=== PATIENT | female | born 1945 | race Caucasian/White ===

== ENCOUNTER 2020-09-10 16:24 | Emergency (ER) | payer MEDICARE, SELFPAY ==
[2020-09-10] VITALS (13 sets, daily range): BP systolic 119–164; BP diastolic 67–85; PULSE 64–86; RESP 16; TEMP 36.2; O2SAT 97–100
--- NOTE | ~2020-09-10 | CT_ITS ---
EXAMINATION: CT brain wo con EXAM DATE: 09/10/2020 19:25 INDICATION: Left-sided headache. History of aneurysm. TECHNIQUE: Spiral CT of the head was performed without contrast. Axial, coronal and sagittal images were reviewed. The dose-length product (DLP) for this examination was 605.33 mGy-cm. The exposure w as tailored according to patient size, and iterative reconstruction (ASIR) was used as additional dos e reduction technique. Comparison is made to prior examination from 01/11/2017. FINDINGS: There is been interval left-sided craniotomy, left parasellar aneurysm clip. There is large region of left frontotemporal encephalomalacia underlying this. There is no acute intraparenchymal h emorrhage. No evidence of intraparenchymal brain mass lesion. Mild cerebral atrophy. No evidence of acute infarction. There is no mass effect or midline shift. The ventricles are normal in size. The re are no extra-axial collections. There are no acute calvarial fractures. The orbits are unremarkab le. Soft tissue is unremarkable. The visualized sinuses and mastoid air cells are well aerated. IMPRESSION: 1. No acute intracranial findings. 2. Left parasellar aneurysm clip, left frontal craniotomy and underlying frontotemporal encephalomal acia. Reviewed, dictated and finalized at location A. IMPRESSION: 1. No acute intracranial findings. 2. Left parasellar aneurysm clip, left frontal craniotomy and underlying front otemporal encephalomalacia.
--- NOTE | 2020-09-10 19:01 | ED.HA ---
HPI - Headache General Chief Complaint: Headache Stated Complaint: headache Time Seen by Provider: 09/10/20 18:47 Source: patient and family Mode of arrival: ambulatory Limitations: other (previous CVA with history of expressive aphasia) History of Present Illness HPI Narrative: This is a 74-year-old female that presents the emergency department for worsening headache over the last couple of days. Reports history of aneurysm that she had clipped in the past at [facility]. Currently her neurologist is at [facility]. Per son has history of expressive aphasia since a stroke and does have history of headaches. She is currently seeing pain management for her headaches and they are doing Botox for her headaches. Reports visual change on the left, which also apparently is chronic. Denies fever, stiff neck, vomiting, numbness, or weakness. Related Data Home Medications Medication Instructions Recorded Confirmed acetaminophen 650 mg PO Q6H PRN 09/10/20 atorvastatin 20 mg PO HS 09/10/20 budesonide [Pulmicort Flexhaler] INHALATION 09/10/20 calcium polycarbophil [Fiber mg 09/10/20 (calcium polycarbophil)] diltiazem HCl 120 mg PO DAILY 09/10/20 gabapentin 300 mg PO DAILY 09/10/20 gabapentin 600 mg PO HS 09/10/20 loratadine 10 mg PO DAILY 09/10/20 metformin 500 mg PO BID 09/10/20 rfebyaaf-doy-UE-lycopen-lutein tablet PO 09/10/20 [CertaVite Senior] potassium chloride 40 meq PO DAILY 09/10/20 Allergies Allergy/AdvReac Type Severity Reaction Status Date / Time azithromycin Allergy Intermediate X Verified 09/10/20 18:45 latex Allergy Intermediate Rash Verified 09/10/20 18:45 hydrocodone Allergy Mild SOB Verified 09/10/20 18:45 levofloxacin Allergy Mild RASH Verified 09/10/20 18:45 aspirin Allergy Unknown Unknown Verified 09/10/20 18:45 codeine Allergy Unknown SOB Verified 09/10/20 18:45 Penicillins Allergy Unknown Unknown Verified 09/10/20 18:45 prednisone Allergy Unknown Unknown Verified 09/10/20 18:45 salicylates Allergy Unknown Verified 09/10/20 19:12 Review of Systems Review of Systems: Narrative: CONSTITUTIONAL: Denies fever EYES: Reports visual changes GASTROINTESTINAL: Denies vomiting SKIN: Denies rash NEUROLOGIC: Reports headache. Denies numbness, or weakness. All systems reviewed & are unremarkable except as noted in HPI and below PMFSH Past Medical History Medical History (Updated 09/10/20 @ 21:06 by Yadi Soin PA-C) History of diabetes mellitus History of hyperlipidemia History of hypertension Surgical History Surgical History (Updated 09/10/20 @ 19:07 by Yadi Soni PA-C) History of cerebral aneurysm repair Family History Family History (Updated 07/29/16 @ 09:42 by DOCTOR UNKNOWN) Father Family history of cardiovascular disease Social History Social History Alcohol intake: never Exam Narrative: Exam Narrative: GENERAL: Well-appearing, well-nourished, and in no acute distress. HEAD: Normocephalic, atraumatic. EYES: EOMI. Pupils slightly irregular, R>L, they are reactive to light ENT: Nares clear, no rhinorrhea or epistaxis. Mucous membranes moist. Oropharynx without tonsillar hypertrophy exudate or other lesions. Bilateral TMs pearly nettles non-bulging. Tooth #15 tender to palpation, no surrounding erythema or fluctuance to suggest abscess NECK: Supple. No adenopathy or masses. CHEST: Clear to auscultation. No respiratory distress. No wheezes rales or rhonchi HEART: Regular rate and rhythm. No murmur heard. Normal peripheral pulses. EXTREMITIES: Normal range of motion. No edema. Strength equal in bilateral upper and lower extremities (5/5) SKIN: Warm, dry, no rash. NEURO: No focal deficits. Alert and oriented x3. PSYCH: Normal mood and affect Course Consultations Consultation #1: Spoke with her neurosurgeon at [facility], Dr. Garcia about work-up. Patient instructed to follow-up with neurology outpatient. Date: 09/10/20 Time: 21:04 Vital Signs Vital signs: Neela
[2020-09-10] MEDS: SODIUM CHLORIDE 0.9% IV 500 ML 999 ML IV CONT (19:40)
[2020-09-10] MEDS: diphenhydrAMINE HCl INJ 50 MG/ML VIAL 25 MG IV PUSH (19:41)
[2020-09-10] MEDS: METOCLOPRAMIDE HCL INJ 10 MG/2 ML VIAL IV PUSH (19:42)
[2020-09-10 19:44] LABS: Basophils Absolute Auto 0.1 K/mm3 (0.0-0.1); Eosinophils Absolute Auto 0.3 K/mm3 (0-0.3); Eosinophils Percent Auto 5.6 % (0-4.4); Hematocrit 35.9 % (37.0-47.0); Hemoglobin 11.9 g/dL (12.0-15.0); Immature Granulocyte Absolute 0.01 K/mm3 (0.00-0.031); Immature Granulocyte Percent A 0.2 % (0-0.5); Lymphocytes Absolute Auto 2.09 K/mm3 (0.9-3.2); Lymphocytes Percent Auto 34.4 % (18.3-44.2); Mean Corpuscular HGB Conc 33.1 g/dl (32-36); Mean Corpuscular Hemoglobin 30.3 pg (26-34); Mean Corpuscular Volume 91.3 fl (80-100); Mean Platelet Volume 9.4 fl (7.4-10.4); Monocytes Absolute Auto 0.5 K/mm3 (0.1-0.6); Monocytes Percent Auto 8.6 % (2.6-8.5); Neutrophils Absolute Auto 3.1 K/mm3 (1.3-6.7); Neutrophils Percent Auto 50.2 % (45.5-73.1); Platelet Count Result 366 k/mm3 (150-375); Red Blood Count 3.93 M/mm3 (4.2-5.4); Red Cell Distribution Width 13.3 % (11.5-14.5); White Blood Count 6.1 K/mm3 (4.5-10.0)
[2020-09-10 19:51] LABS: Alanine Aminotransferase 26 U/L (4-35); Albumin Level 4.4 g/dL (3.5-5.1); Alkaline Phosphatase 66 U/L (38-126); Anion Gap 6 mmol/L (8-16); Aspartate Amino Transferase 35 U/L (14-36); Bilirubin,Total 0.3 mg/dL (0.2-1.3); Blood Urea Nitrogen 12 mg/dL (7-17); Calcium 9.5 mg/dL (8.4-10.2); Carbon Dioxide 26 mmol/L (22-30); Chloride 106 mmol/L (98-107); Estimated Glomerular Filt Rate > 60; Glucose 157 mg/dL (65-105); Potassium 4.2 mmol/L (3.4-5.0); Sodium 138 mmol/L (137-145)
[2020-09-10 20:32] LABS: Erythrocyte Sedimentation Rate 28 mm/hr (0-20)
== END 2020-09-10 21:24 | disposition home or self-care (01) ==
PROVIDERS: Physician Assistant; Emergency Provider Emergency Medicine; PCP Nurse Practitioner Family
DX: R51.9 Headache, unspecified (principal); K08.89 Other specified disorders of teeth and supporting structures; E11.9 Type 2 diabetes mellitus without complications; Z79.84 Long term (current) use of oral hypoglycemic drugs; E78.5 Hyperlipidemia, unspecified; I10 Essential (primary) hypertension
CPT/HCPCS: 36415; 70450; 80053; 85025; 85652; 96365; 96375; 99284; J0131; J1200; J2765; J7040

== ENCOUNTER → 2020-09-16 15:25 | Outpatient (REF) | payer MEDICARE, MEDICAID, SELFPAY | LOC: ANHLAB 15:25 | PROVIDERS: PCP Nurse Practitioner Family; Visit Provider Nurse Practitioner | DX: C44.319 Basal cell carcinoma of skin of other parts of face (principal) | CPT/HCPCS: 88305 ==

== ENCOUNTER 2020-09-18 17:42 | Emergency (ER) | payer MEDICARE, MEDICAID, SELFPAY ==
--- NOTE | ~2020-09-18 | CT_ITS ---
EXAMINATION: CT facial bones wo con DATE: 09/18/2020 19:45 INDICATION: Pain after fall TECHNIQUE: Computed tomography (CT) of the facial bones and maxillofacial region was performed withou t intravenous contrast. The dose-length product (DLP) was 285.32 mGy-cm. Automated exposure control a nd iterative reconstruction technique were employed. COMPARISON: None. FINDINGS: No facial bone fracture is identified. The globes are intact. The orbits are normal. Change s in the globes are likely from ocular lens surgery. There is soft tissue swelling of the upper lip. Changes of left temporal craniotomy are noted. IMPRESSION: 1. Soft tissue swelling without acute osseous abnormality. Reviewed, dictated and finalized at location A.
--- NOTE | ~2020-09-18 | XR_ITS ---
EXAMINATION: XR elbow RT min 3V INDICATION: Right elbow pain TECHNIQUE: Three views of the right elbow are obtained. COMPARISON: None available FINDINGS: Examination is limited by patient's inability to extend the arm. No fracture is identified. Bone alignment appears normal. The soft tissues are unremarkable. No joint effusion is identified. IMPRESSION: 1. No acute osseous abnormality. Reviewed, dictated and finalized at location A.
--- NOTE | ~2020-09-18 | CT_ITS ---
EXAMINATION: CT brain wo con INDICATION: Head injury COMPARISON: None TECHNIQUE: Standard unenhanced head CT. The dose-length product (DLP) was 605.33 mGy-cm. The mA was a djusted according to patient size. Iterative reconstruction technique was employed. FINDINGS: There is no acute intraparenchymal hemorrhage. No evidence of mass lesion. No evidence of a cute infarction. There is encephalomalacia in the left frontal and temporal lobes. Changes of left te mporal craniotomy and left parasellar aneurysm repair are again noted. There is mild periventricular and subcortical hypodensity probably related to small vessel ischemic disease. There is mild prominen ce of the sulci and ventricles related to cerebral atrophy. Intracranial calcified cerebral atheroscl erosis is noted. There are no extra-axial collections. There is no mass effect or midline shift. Kellogg ges in the globes are likely from ocular lens surgery. The visualized sinuses and mastoid air cells are well aerated. IMPRESSION: 1. No acute intracranial abnormality. 2. Age related findings. 3. Left frontotemporal encephalomalacia and changes of left frontal craniotomy and aneurysm repair. Reviewed, dictated and finalized at location A.
--- NOTE | ~2020-09-18 | XR_ITS ---
EXAMINATION: XR shoulder RT min 2V INDICATION: Right shoulder pain, initial encounter TECHNIQUE: Three views of the right shoulder are submitted. COMPARISON: None FINDINGS: There is an acute, traumatic, oblique fracture involving the proximal shaft of the humerus. There is mild osteoarthritis of the glenohumeral and acromioclavicular joints. Soft tissues are unre markable. IMPRESSION: 1. Acute, oblique fracture of the proximal humeral shaft. Reviewed, dictated and finalized at location A.
--- NOTE | ~2020-09-18 | XR_ITS ---
EXAMINATION: XR chest 1V INDICATION: Chest pain TECHNIQUE: AP view of the chest is obtained COMPARISON: None available FINDINGS: The lungs are free of acute opacities. There is no pleural effusion or pneumothorax. The ca rdiomediastinal silhouette is normal. There is a nondisplaced shaft fracture of the proximal right hu merus. IMPRESSION: 1. No acute cardiopulmonary abnormality. 2. Nondisplaced shaft fracture of the proximal right humerus. Reviewed, dictated and finalized at location A.
[2020-09-18 18:41] VITALS: BP 148/88; PULSE 81; RESP 18; TEMP 36.6; O2SAT 100
--- NOTE | 2020-09-18 19:06 | ED.FALL ---
HPI - Fall General Chief Complaint: Fall Stated Complaint: Fall/Lip Laceration/r Clavicle injury Time Seen by Provider: 09/18/20 18:56 Source: patient, family, RN notes reviewed and old records reviewed History of Present Illness HPI Narrative: Patient is A and Ox1, history taken from patient and family at bedside. 74-year-old female presents to emergency department from an assisted living facility after sustaining a fall prior to arrival. Patient states he tripped earlier today. She does report having some palpitations before falling. Reports pain to her head and right shoulder. Per family, patient usually walks without assistance. She has not taken anything for the pain so far. Related Data Home Medications Medication Instructions Recorded Confirmed atorvastatin 20 mg PO HS 09/10/20 09/16/20 budesonide [Pulmicort Flexhaler] INHALATION 09/10/20 calcium polycarbophil [Fiber mg 09/10/20 (calcium polycarbophil)] diltiazem HCl 120 mg PO DAILY 09/10/20 09/16/20 gabapentin 300 mg PO DAILY 09/10/20 09/16/20 metformin 500 mg PO BID 09/10/20 09/16/20 albuterol sulfate 0.63 mg/3 mL 0.63 mg INHALATION Q6H 09/16/20 09/16/20 solution for nebulization albuterol sulfate [Ventolin HFA] INHALATION PRN 09/16/20 09/16/20 doxycycline hyclate 100 mg capsule 100 mg PO BID cap 09/16/20 09/16/20 fluticasone propionate 50 1 spray INTRANASAL DAILY PRN 09/16/20 09/16/20 mcg/actuation nasal spray,suspension glipizide 10 mg tablet, extended 10 mg PO DAILY 09/16/20 09/16/20 release 24 hr Allergies Allergy/AdvReac Type Severity Reaction Status Date / Time azithromycin Allergy Intermediate X Verified 09/18/20 18:48 latex Allergy Intermediate Rash Verified 09/18/20 18:48 hydrocodone Allergy Mild SOB Verified 09/18/20 18:48 levofloxacin Allergy Mild RASH Verified 09/18/20 18:48 aspirin Allergy Unknown Unknown Verified 09/18/20 18:48 codeine Allergy Unknown SOB Verified 09/18/20 18:48 Penicillins Allergy Unknown Unknown Verified 09/18/20 18:48 prednisone Allergy Unknown Unknown Verified 09/18/20 18:48 salicylates Allergy Unknown Unknown Verified 09/16/20 14:56 sulfamethoxazole Allergy Other Verified 09/18/20 18:48 Review of Systems Review of Systems: Narrative: CONSTITUTIONAL: Denies fever, chills, or sweats. Reports head pain EYES: Denies visual changes, redness, or discharge. ENT: Denies rhinorrhea, congestion, sore throat, or otalgia. CARDIOVASCULAR: Denies chest pain and edema. RESPIRATORY: Denies cough or dyspnea. GASTROINTESTINAL: Denies abdominal pain, nausea, vomiting, or diarrhea. GENITOURINARY: Denies dysuria or hematuria. SKIN: Denies rash or itching. MUSCULOSKELETAL: Denies back pain or myalgia. Reports right shoulder pain. NEUROLOGIC: Denies headache, numbness, dizziness, or weakness. PSYCHIATRIC: Denies anxiety or depression. All systems reviewed & are unremarkable except as noted in HPI and below (ROS) PMFSH Past Medical History Medical History (Updated 09/19/20 @ 00:49 by Bryant Mendoza DO) Fracture, humerus closed Surgical History Surgical History History of cerebral aneurysm repair Family History Family History Father Family history of cardiovascular disease Social History Social History Smoking status: Former smoker Alcohol intake: never Substance use: never Substance use type: does not use Exam Narrative: Exam Narrative: GENERAL: Well-appearing, well-nourished, and in no acute distress. HEAD: Normocephalic. Ecchymosis underneath right eye EYES: PERRLA and EOMI. ENT: Nares clear, no rhinorrhea or epistaxis. Mucous membranes moist. NECK: Supple. CHEST: Clear to auscultation. No respiratory distress. HEART: Regular rate and rhythm. No murmur heard. Normal peripheral pulses. ABDOMEN: Soft, nontender, nondistended, normal a
--- NOTE | 2020-09-18 19:09 | ECG_ITS ---
Measurements Intervals [place] Rate: 79 P: 48 CO: 172 QRS: -26 QRSD: 128 T: 52 QT: 422 QTc: 485 Interpretive Statements SINUS RHYTHM RIGHT BUNDLE BRANCH BLOCK BASELINE ARTIFACT- I, II, III, AVR, AVL, AVF ABNORMAL ECG Electronically Signed On 09-18-2020 20:35:10 CDT by Gregory Barber D.O.
[2020-09-18 19:34] LABS: Basophils Absolute Auto 0.1 K/mm3 (0.0-0.1); Basophils Percent Auto 0.7 % (0.2-1.2); Eosinophils Absolute Auto 0.1 K/mm3 (0-0.3); Eosinophils Percent Auto 0.7 % (0-4.4); Hematocrit 35.4 % (37.0-47.0); Hemoglobin 11.8 g/dL (12.0-15.0); Immature Granulocyte Absolute 0.06 K/mm3 (0.00-0.031); Immature Granulocyte Percent A 0.6 % (0-0.5); Lymphocytes Absolute Auto 1.53 K/mm3 (0.9-3.2); Lymphocytes Percent Auto 14.4 % (18.3-44.2); Mean Corpuscular HGB Conc 33.3 g/dl (32-36); Mean Corpuscular Hemoglobin 30.2 pg (26-34); Mean Corpuscular Volume 90.5 fl (80-100); Mean Platelet Volume 9.2 fl (7.4-10.4); Monocytes Absolute Auto 0.9 K/mm3 (0.1-0.6); Monocytes Percent Auto 8.7 % (2.6-8.5); Neutrophils Percent Auto 74.9 % (45.5-73.1); Platelet Count Result 355 k/mm3 (150-375); Red Blood Count 3.91 M/mm3 (4.2-5.4); Red Cell Distribution Width 13.3 % (11.5-14.5); White Blood Count 10.6 K/mm3 (4.5-10.0)
[2020-09-18 19:52] LABS: Acetaminophen < 10 ug/mL (10-30); Alanine Aminotransferase 30 U/L (4-35); Albumin Level 4.5 g/dL (3.5-5.1); Alkaline Phosphatase 66 U/L (38-126); Anion Gap 9 mmol/L (8-16); Aspartate Amino Transferase 43 U/L (14-36); Bilirubin,Total 0.6 mg/dL (0.2-1.3); Blood Urea Nitrogen 13 mg/dL (7-17); Calcium 9.5 mg/dL (8.4-10.2); Carbon Dioxide 22 mmol/L (22-30); Chloride 100 mmol/L (98-107); Estimated Glomerular Filt Rate > 60; Glucose 152 mg/dL (65-105); Magnesium 1.3 mg/dL (1.6-2.3); Potassium 4.4 mmol/L (3.4-5.0); Salicylate < 1.0 mg/dL (2-20); Sodium 131 mmol/L (137-145)
[2020-09-18 20:03] LABS: NT Pro B Type Natriuretic Pept 116 pg/mL (5-100); Troponin I < 0.012 ng/mL (0.000-0.034)
[2020-09-18] MEDS: fentaNYL CITRATE INJ (*CRX) 100 MCG/2 ML VIAL 25 MCG IV PUSH (20:05)
[2020-09-18 20:35] LABS: Partial Thromboplastin Time 24.7 SECONDS (22.3-36.8); Prothrombin Time 13.5 Seconds (11.1-14.7)
[2020-09-18 20:47] LABS: Add Urine Microscopic? YES; Appearance Urine Clear (Clear); Bacteria Urine Trace /hpf; Bilirubin Urine Negative (Negative); Blood Urine Negative (Negative); Color Urine Yellow (Yellow); Glucose Urine UA Negative (Negative); Ketones Urine Trace mg/dL (Negative); Leukocyte Esterase Ur 2+ LEU/UL (Negative); Mucus Urine Rare /lpf; Nitrate Urine Negative (Negative); Protein Urine Negative (Negative); Specific Grav Ur 1.014 (1.001-1.035); Urobilinogen Urine Negative mg/dL (<2.0)
[2020-09-18 22:24] VITALS: BP 135/86; PULSE 74; RESP 16; TEMP 36.3; O2SAT 96
== END 2020-09-18 22:24 ==
PROVIDERS: Emergency Provider Emergency Medicine; PCP Nurse Practitioner Family
DX: S42.331A Displaced oblique fracture of shaft of humerus, right arm, initial encounter for closed fracture (principal); Z79.84 Long term (current) use of oral hypoglycemic drugs; Z87.891 Personal history of nicotine dependence; I45.10 Unspecified right bundle-branch block; W01.0XXA Fall on same level from slipping, tripping and stumbling without subsequent striking against object, initial encounter; Z79.899 Other long term (current) drug therapy
CPT/HCPCS: 36415; 70450; 70486; 71045; 73030; 73080; 80053; 80307; 81001; 83735; 83880; 84484; 85025; 85610; 85730; 93005; 96374; 99284; A4565; J3010

== ENCOUNTER → 2020-11-17 09:41 | Outpatient (REF) | payer MEDICARE, SELFPAY | LOC: ANHLAB 09:41 | PROVIDERS: PCP Nurse Practitioner Family; Visit Provider Nurse Practitioner | DX: C44.319 Basal cell carcinoma of skin of other parts of face (principal) | CPT/HCPCS: 88305; 88331 ==

== ENCOUNTER 2023-03-18 10:08 | Outpatient (CLI) | payer MEDICARE, SELFPAY ==
--- NOTE | ~2023-03-18 | CT_ITS ---
EXAMINATION: CT brain wo/w con DATE: 03/18/2023 10:41 INDICATION: Neuralgia. Left facial pain, affecting left orbit and jaw for 6 months. History of cerebr ovascular accident and aneurysm repair. TECHNIQUE: Computed tomography (CT) of the head was performed without and subsequently with 100 CC Om nipaque 350 intravenous contrast. The mA was adjusted according to patient size. Iterative reconstruc tion technique was employed. Exam dose: 1199.14 mGy-cm total exam DLP. COMPARISON: 09/18/2020 CT brain FINDINGS: Status post left frontal temporal craniotomy with artificial flap secured by plates and scr ews. Left-sided aneurysm clip is unchanged in position since 09/10/2020. 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 No other cerebral artery aneu rysm is evident. There is right carotid siphon internal carotid artery calcification. Temporal pariet al encephalomalacia within the distribution of the middle cerebral artery consistent with chronic inf arct, stable since 09/10/2020. No new cerebrovascular accident is evident. No intracranial mass lesion. No midline shift or mass eff ect. No intracranial hemorrhage. No subdural or epidural hematoma. Included paranasal sinuses and the mastoid air cells are normally developed and aerated. No fracture or bone destruction of the cranial vault. IMPRESSION: No acute intracranial finding or significant change since 09/18/2020 Reviewed, dictated and finalized at Location A. Reviewed, dictated and finalized at location B. L PICKER
[2023-03-18 10:29] LABS: Estimated Glomerular Filt Rate > 60
== END 2023-03-18 10:09 ==
LOC: MICIMG 10:11
PROVIDERS: PCP Nurse Practitioner Family; Visit Provider Nurse Practitioner Family
DX: M79.2 Neuralgia and neuritis, unspecified (principal)
CPT/HCPCS: 70470; Q9967

== ENCOUNTER 2024-03-08 07:37 | Outpatient (CLI) | payer MEDICARE, SELFPAY ==
--- NOTE | ~2024-03-08 | US_ITS ---
US abdomen limited INDICATION: Abnormal labs. PROCEDURE: Realtime right upper abdominal ultrasound. COMPARISON: No prior studies for comparison. FINDINGS: The pancreas is normal without focal mass or pancreatic ductal dilation. Liver echotexture is increased, consistent with fatty infiltration. There is normal directional flow in the portal ve in. There are gallstones. No gallbladder wall thickening or pericholecystic fluid. Common bile duct brittni ures 3 mm. No sonographic Pate's sign. IMPRESSION: 1: Fatty infiltration of the liver. 2: Cholelithiasis. Reviewed, dictated and finalized at location B. AR TECHNICIAN
== END 2024-03-08 07:38 | disposition home or self-care (01) ==
PROVIDERS: PCP Nurse Practitioner Family; Visit Provider Nurse Practitioner Family
DX: K76.0 Fatty (change of) liver, not elsewhere classified (principal); K80.20 Calculus of gallbladder without cholecystitis without obstruction; R79.89 Other specified abnormal findings of blood chemistry
CPT/HCPCS: 76705